=== PATIENT | male | born 1975 | race Caucasian/White ===

== ENCOUNTER 2021-02-17 09:42 | Day surgery (SDC) | payer BC ==
[2021-02-15 11:33] VITALS: BMI 31.4
[~2021-02-17 09:42] MED LIST: DEXAMETHASONE SOD PHOSPHATE 4 MG/ML 1 ML VIAL IV ONE; HYDROmorphone 0.5 MG/0.5 ML SYRINGE IVP PRN; LACTATED RINGERS 1,000 ML IV SCH; LIDOCAINE 1% (10MG/ML) FOR IV START INTRADERMA PRN; MIDAZOLAM 2 MG/2 ML VIAL IV PRN; ONDANSETRON 4 MG/2 ML VIAL IVP ONE
[2021-02-17 10:15] LABS: Glucose,Whole Blood 103 mg/dL (75-99)
[2021-02-17] MEDS ORDERED: LACTATED RINGERS 1,000 ML IV ONE (10:15)
[2021-02-17] MEDS ORDERED: MIDAZOLAM 2 MG/2 ML VIAL ONE (11:25)
[2021-02-17] MEDS ORDERED: SUCCINYLCHOLINE CHLORIDE 100 MG/5 ML SYR IV ONE (11:25)
[2021-02-17] MEDS ORDERED: fentaNYL (PF) 50 MCG/ML 2 ML AMP ONE (11:25)
[2021-02-17] MEDS ORDERED: GLYCOPYRROLATE 0.2 MG/ML 2 ML VIAL ONE (11:25)
[2021-02-17] MEDS ORDERED: PROPOFOL 10 MG/ML 20 ML VIAL IV ONE (11:25)
[2021-02-17] MEDS ORDERED: LIDOCAINE 1% INJ 10MG/ML (20 ML MDV) ONE (11:25)
[2021-02-17] MEDS ORDERED: HYDROmorphone (PF) 1 MG/ML ONE (11:25)
[2021-02-17 13:05] VITALS: TEMP 98.2
--- NOTE | 2021-02-17 13:12 | P.OP ---
Date of Procedure: 02/17/21 Preoperative Diagnosis: Hallux rigidus right foot Procedure(s) Performed: First metatarsal phalangeal joint arthrodesis right foot Implants: [employer] Cross check plate with 2.7 and 3.5 locking screws and interfrag screw 1cc [employer] Anesthesia: BJ Surgeon: Giovanni Kuhn Estimated Blood Loss (ml): 3 Pathology: none sent Condition: stable Disposition: PACU Description of Procedure: The patient was brought into the operating room placed on table supine position. Timeout was taken to confirm correct patient identifiers, correct procedure, and correct site of surgery. When all staff in the room in agreement with the timeout, the patient was induced intubated and placed under general anesthesia. A well-padded tourniquet was placed on the right ankle. Then 20 mL of 0.25% Marcaine was injected as a right ankle block and then the right foot was prepped and draped usual manner. The foot was exsanguinated and the tourniquet inflated to 250 mmHg. Attention was directed over the first metatarsal phalangeal joint where a linear incision was made between the long extensor tendon and the neurovascular structures. The incision was deepened down through the saphenous layer careful to identify, avoid, and retract any neurovascular structures and cauterize any bleeding vessels. Blunt dissection was continued down to level the joint capsule. Capsulotomy was performed just medial to the extensor tendon. The capsule was then reflected from the first metatarsal phalangeal joint. The soft tissue was released plantarly to allow for complete exposure of the joint. A sagittal saw was used to remove the dorsal and medial osteophytes of the first metatarsal head. All roughened edges were smoothed with a rasp. A guidewire for the reamers was placed in the central aspect of the first metatarsal head and advanced parallel to the long axis and centrally in the medullary canal. The concave reamer was then placed over the wire and then used to remove the articular cartilage and subchondral bone of the first metatarsal head. The wire was removed and then was used to fully fenestrate the first metatarsal head. The same guidewire was inserted at the articular surface of the base of the proximal phalanx. There is centrally located and advanced into the medullary canal parallel with the long axis of the proximal phalanx. The convex reamer, of the same diameter as the concave reamer, was then utilized to remove the articular cartilage and subchondral bone of the base of the proximal phalanx. The guidewire was removed was used to fully fenestrate the articular surface. The wound is then thoroughly irrigated with saline. 1 mL of AlloMatrix putty was then mixed on the back table and then placed between the arthrodesis segments.The [facility] Cross Check first metatarsal phalangeal joint fusion plate was placed dorsally across the arthrodesis site. There was a line on the plate indicating where the joint to be located and once that was aligned was temporarily fixated. Fluoroscopy was used to check the overall alignment of the joint as well as placement of the plate. Once both were adequate (2) 2.7 locking screws were placed through the distal locking holes of the plate into the proximal phalanx. Then the drill guide was placed through the compression slot and the drill advanced across the arthrodesis site. The interfragmentary compression screw was then placed through the drill hole in the plate and advanced until the head engaged the plate provided significant compression across the arthrodesis site which was marked with extrusion of some of the AlloMatrix putty from the arthrodesis site. Fluoroscopy was then used to make sure that the alignment was maintained and that the first 3 screws were properly placed. Once it was determined that there properly placed 3.5 locking screws were placed through the 2 proximal holes in the plate and into the first metatarsal. Final fluoroscopic imaging showed maintain correction of the great toe excellent bony contact noted. All hardware was properly placed. The wound is again irrigated with normal saline. The capsules closed with 0 Vicryl. The subcutaneous tissue was closed with 4-0 Monocryl. And the skin closed with a running subcuticular stitch utilizing 30 Stratafix. Dermal glue was placed across incision and once dried Steri-Strips are placed across incision. An Arthrex jumpstart dressing was placed over the incision and then the foot was covered with a dry sterile dressing. The tourniquet was released capillary refill return to all digits on the right foot. The patient was placed in a short fracture boot with ankle neutral position. Anesthesia was reversed, he was not dramatically extubated, and taken recovery with vital signs stable
[2021-02-17 13:39] VITALS: RESP 16
[2021-02-17 14:11] VITALS: BP 141/98; PULSE 57
== END 2021-02-17 14:31 | disposition home or self-care (01) ==
LOC: OR 09:42
PROVIDERS: ATTEND Podiatrist
DX: M20.21 Hallux rigidus, right foot (principal); M20.22 Hallux rigidus, left foot; I10 Essential (primary) hypertension; F42.9 Obsessive-compulsive disorder, unspecified; M19.071 Primary osteoarthritis, right ankle and foot; M19.072 Primary osteoarthritis, left ankle and foot; Z79.899 Other long term (current) drug therapy; Z87.891 Personal history of nicotine dependence
CPT/HCPCS: 28750; C1713 ×2; J2250; J1100; J0690; J2405; J2001; J3010; J1170; J0330; J2704